=== PATIENT | male | born 1955 | race Caucasian/White ===

== ENCOUNTER 2016-09-15 21:36 | Emergency (ER) | payer OTHER ==
[~2016-09-15] VITALS: Ht 188 cm; Wt 111.8 kg
[2016-09-15 21:38] VITALS: BP 136/81; PULSE 81; RESP 20; O2SAT 95
--- NOTE | 2016-09-15 21:53 | ED.REPORT ---
HPI- Male Date of Service Sep 15, 2016 ED Provider: Dangeol Ruiz MD Pt is a 60 y.o. male with a hx of prostate cancer who presents to the ED c/o decreased urine output onset 1529. Pt states that he had a cystoscopy performed today and his san, that was in place for 6 days, was removed today. he states that after the procedure he was able to have about 1/3 cup of urine output. He now states that he feel as though his bladder is full and has had no additional output. Pt is currently followed by Dr. Bourgeois, Urology. Nursing Notes Stated Complaint: UNABLE TO URINATE Chief Complaint: Male Abdominal Pain Nursing Notes Reviewed: Yes Allergies: Coded Allergies: No Known Allergies (Unverified , 09/15/16) General Time Seen by MD: 21:53 Chief Complaint Unable to urinate Hx Obtained From: Patient Arrived By: Walk-in Onset Occurred: 5 - 8 hours ago Symptom Duration: Since onset Severity: Current: No pain currently Recent Healthcare: Recent doctor visit Past Medical History Past Medical History Reports: Cancer (Prostate) Ambulatory Status Independent Review of Systems Male: Reports Urination decreased Complete sys rev & neg: except as marked. Physical Exam Initial Vital Signs Vital Signs (First) Date Time Temp Pulse Resp B/P Pulse Ox O2 Delivery O2 Flow Rate FiO2 09/15/16 21:38 36.8 81 20 136/81 95 Room Air Initial VS: Reviewed Head / Eyes: Atraumatic, Normocephalic, PERRL Respiratory: Breath sounds normal, Clear to auscultation, No respiratory distress Cardiovascular: Regular rate & rhythm, Heart sounds normal, Intact distal pulses Extremities: Vascular intact, Neuro intact Skin: Warm, Dry, No cyanosis Neurologic: Alert, Oriented, Nonfocal Psychiatric: Mood/affect normal, Behavior normal, Normal thought content Male Genitourinary: Patient refused exam Abdomen: Atraumatic, Soft, Non-tender, No guarding, No rebound, No distention Interpretation & Diagnostics Lab Results Interpretation Test 09/15/16 22:32 Hold Urine Received (Received) Re-Eval/Medical Decision Med Decision/Clinical Course Patient with distention and sensation of bladder fullness after discontinuation of his San. Bladder scan are not immediately available and so San was placed with only 100 mL present. This is fairly clearly trigone irritation rather than bladder dilatation and urinary retention. Catheter removed. Follow-up with Dr. bourgeois Source of Hx: Old records Re-Evaluation/Progress : Time of Eval: 22:39 Patient Status: Condition improved Re-Evaluation/Progress Note: Pt rechecked. San in place with 100u output. Discussed plan for catheter removal and discharge, understands and agrees with plan. Counseled Regarding: Diagnosis, Lab results, Need for follow-up, When/why to return to ED Discharge & Departure Impression: Primary Impression: Prostatic hypertrophy Additional Impression: Urinary urgency Disposition: Home Discharge Condition All VS Reviewed: Yes Condition: Improved Additional Instructions: Follow-up with your urologist as planned. Return if any immediate issues. Referrals: Candelario Rice MD (PCP) Danielle Attestation Portions of this note were transcribed by Aris Mlechor. I, Dr. Ruiz personally performed the history, physical exam and medical decision-making; I reviewed and confirmed the accuracy of the information in the transcribed note. Signed by: Danielle Cruz, 09/15/16 and 7017. copies to: Terra Bourgeois MD; Candelario Rice MD, Christopher W MD Sep 15, 2016 21:53 ARIS MELCHOR Sep 15, 2016 22:02
[2016-09-15] MEDS ORDERED: Lidocaine 2% 6mL Topical Jelly TOPICAL ONE (22:05)
[2016-09-30] MEDS ORDERED: UBID200C31 PO (13:15)
[2016-09-30] MEDS ORDERED: BENEDRYL PO (13:15)
[2016-09-30] MEDS ORDERED: RED600CA2 PO (13:15)
[2016-09-30] MEDS ORDERED: L.AC1CAP6 PO (13:15)
[2016-09-30] MEDS ORDERED: ASPI-973 PO (13:15)
[2016-09-30] MEDS ORDERED: D-MA1POW MC (13:15)
[2016-09-30] MEDS ORDERED: NITR100C PO (13:15)
[2016-09-30] MEDS ORDERED: MULT-1018 PO (13:15)
[2016-09-30] MEDS ORDERED: CHOL100045 PO (13:15)
[2016-09-30] MEDS ORDERED: TADA5TAB2 PO (13:16)
== END 2016-09-15 22:57 | disposition home or self-care (01) ==
LOC: SED 21:36
DX: N40.1 Benign prostatic hyperplasia with lower urinary tract symptoms (principal); R39.15 Urgency of urination; C61 Malignant neoplasm of prostate; Z98.890 Other specified postprocedural states

== ENCOUNTER 2016-10-05 11:33 | Day surgery (SDC) | payer OTHER ==
[~2016-10-05] VITALS: Ht 188 cm; Wt 110.6 kg
[2016-10-05] VITALS (8 sets, daily range): BP systolic 114–138; BP diastolic 62–90; PULSE 64–75; RESP 12–17; O2SAT 93–99
[~2016-10-05 11:33] MED LIST: ASPI-973 PO; BENEDRYL PO; CHOL100045 PO; D-MA1POW MC; L.AC1CAP6 PO; MULT-1018 PO; Meropenem 1 Gm/100 mL NS Minibag Plus IV SCH; RED600CA2 PO; TADA5TAB2 PO; UBID200C31 PO
[2016-10-05] MEDS ORDERED: Ondansetron 2 mg/mL 2 mL Inj ONE (11:34)
[2016-10-05] MEDS ORDERED: Lidocaine PF 1% 30 mL Inj ONE (11:34)
[2016-10-05] MEDS ORDERED: fentaNYL-PF 50 mCg/mL 2 mL Inj ONE (11:34)
[2016-10-05] MEDS ORDERED: Propofol 10,000 mCg/mL 20 mL Inj ONE (11:34)
[2016-10-05] MEDS ORDERED: EPHEDrine/NS 5 mg/mL 5 mL Syringe ONE (11:34)
[2016-10-05] MEDS: Lactated Ringer's 1,000 ML IV SCH ×2 (11:40→15:05)
[2016-10-05] MEDS ORDERED: Lactated Ringer's 500 ML IV PRN (14:46)
[2016-10-05] MEDS ORDERED: Lactated Ringer's 1,000 ML IV SCH (14:46)
--- NOTE | 2016-10-05 14:46 | PCM.HPANE ---
Patient Data Date of Service: Oct 05, 2016 Surgeon Admitting Provider: Attending Provider:Terra Lopez MD Primary Care Physician:Candelario Rice MD Other Provider:Urmila Stallworth Anesthesia Reason for Visit Recurrent Urinary Tract Infection Ht/WT & BMI Height (Feet): 6 Height (Inches): 2 Weight (Kilograms): 110.6 Body Mass Index 31.00 Allergies Coded Allergies: No Known Allergies (Unverified , 09/30/16) Past Anesthesia History Anesthesia History: Denies:: Anesthesia Reactions, Malignant Hyperthermia Diabetes History Hx Diabetes?: No MRSA MRSA: No Medications Home Meds Incl Beta Chacorta: No Reported Medications Tadalafil (Cialis)5 Mg Tablet5 Mg PO PRN PRN ED Ref 0 As directed by physician. 09/30/16 Cholecalciferol (Vitamin D3) (Vitamin D)1,000 Unit Capsule1,000 Unit PO DAILY # 1 BOTTLE Ref 0 09/30/16 Red Yeast Rice 600 Mg [id number] Mg PO DAILY 09/30/16 L.acidoph & Paracasei,B.lactis (Probiotic)10 Billion Cell Capsule2 Each PO DAILY 09/30/16 Multivitamin (Multi Vitamin Daily)1 Each Tablet1 Each PO DAILY 30 Days Ref 0 09/30/16 D-Mannose 1 Gm Powder1 Gm MC DAILY 09/30/16 Ubidecarenone (Coenzyme Q-10)200 Mg [id number] Mg PO DAILY 09/30/16 [Benedryl] No Conflict Check12.5 Mg PO Q4-6H PRN PRN 09/30/16 Aspirin 81 Mg [id number] Mg PO DAILY Ref 0 09/30/16 Discontinued Reported Medications Nitrofurantoin Macrocrystal 100 Mg [id number] Mg PO BID Ref 0 X 5 DAYS 09/30/16 History History of ENT Problems?: No HEENT History: Denies:: Abnormal Airway Denture Type: None Teeth Condition: Within Normal Limits Hx of Heart Problems?: Yes Cardiovascular History: Positive for:: Thrombophlebitis (HX DVT FOLLOWING HEEL INJURY 10YRS AGO) Denies:: Congestive Heart Failure Heart Murmur (ECHO 04/2016 EF 60-65%) Hypertension (hyperlipidemia) Hx of Respiratory Problem?: Yes Respiratory History: Denies:: Tuberculosis Use of C-PAP Machine (SNORES) Hx Neurologic Problems?: No Hx of GI Problems?: Yes Hx of Problems?: Yes Genitourinary History: Positive for:: Urinary Tract Infection (RECURRENT W/ LUTS) Other Pertinent History: FOREIGN BODY ( TISSUE/DEBRIS) IN BLADDER= CURRENT PROBLEM S/P CYSTO,INSERTION & REMOVAL OF SUPRAPUBIC TUBE,INSERTION OF PROSTHETIC URETHRA Male Hx: Positive for:: Prostate Problems (HX PROSTATE CA S/P HIFU (HIGH INTENSITY FOCUSED U/S)) Denies:: Scrotal Mass Testicular Surgery Skin History: Positive for:: History Skin Disorders? (S/P EXC BASAL CELL SKIN CA) Denies:: Pressure Ulcers Hx Musculoskeletal Problems?: Yes Musculoskeletal History: Positive for:: Musculoskeletal Trauma (HEEL INJURY 10YRS AGO FOLLOWED BY DVT) Hx of Psycho/Social Problems?: No Hx Surgeries?: Yes (HIFU,SPT INSERT/REMOVAL,CYSTO,EXC BCC SKIN CA,INSERTION PROSTHETIC URETHRA) Hx Any Other Health Problems?: Yes Other History: Positive for:: Cancer (PROSTATE, BASAL CELL SKIN CA) Denies:: Endocrine Disease Hospitalization Thyroid Disease Hx Diabetes: No Hx Alcohol Use: Yes (OCCAS)Hx Substance Use: No Smoking Status: Unknown if Ever Smoker Have You Smoked inLast 12 mo: No Stop/Bang Treated for Sleep Apnea?: No Do You Have a CPAP Machine?: No S-Snoring: Do You Snore Loudly: Yes T-Tired: feel tired, fatigued: No O-Obsered: Observed not breath: No P-Blood Pressure: treated: No B- Body Mass Index > 35 kg/m2: No A- Age over 50: Yes N- Neck Large Circumference: No G- Gender Male: Yes AZAM Total Score: 3 AZAM Risk Assessment: High Risk, =/>3 Yes AZAM Category 4 OutPt Procedure: Yes Risk Assessment Category Category 1A: Patient has history of documented sleep apnea, and HAS NOT received any narcotic, sedative or anesthesia administration during this stay. Category 1B: Patient has history of documented sleep apnea, and HAS received any narcotic , sedative or anesthesia administration during this stay Category 2: Patient has SUSPECTED Obstructive Sleep Apnea, and HAS received any narcotic , sedative or anesthesia administration during this stay. Category 3: Patient has SUSPECTED Obstructive Sleep Apnea and HAS NOT received narcotic, sedative or anesthesia administration during this stay. Category 4: Outpatient in Procedural Areas with known sleep apnea or who screen positive for High Risk via the STOP/BANG questionnaire. Exam Exam Vital Signs Vital Signs Date Time Temp Pulse Resp B/P Pulse Ox O2 Delivery O2 Flow Rate FiO2 10/05/16 11:57 36.4 71 17 129/86 93 Room Air General Appearance: Alert, Oriented X3, Cooperative HEENT/AIRWAY: MP 2, Neck Movement, Mouth Opening (Wide) Lungs: Clear to Auscultation, Normal Air Movement Heart: Regular Rate/Rhythm, Normal S1, Normal S2 Meds/Labs/Diagnostics Admission Meds Current Medications Lactated Ringer's (Lr) 1,000 ml @ 120 mls/hr Q8H20M IV Last administered on t 11:40; Start 10/05/16 at 05:00; Stop 10/05/16 at 13:19 Plan Impression Patient chart reviewed, patient interviewed and anesthestic plan with risks, benefits, and alternatives discussed, and informed consent obtained. NPO per Anesth. Guidelines: Yes ASA Physical Status: ASA2 Mod Systemic Disease Anesthetic Plan: GA Bene/Risks/Altern/Consents: Yes HP Complete Prior to Induction: Yes Tanmay Izaguirre MD Oct 05, 2016 12:49
[2016-10-05] MEDS ORDERED: HYDROmorphone 1 mg/mL Inj IVPUSH PRN (14:50)
[2016-10-05] MEDS ORDERED: Ondansetron 2 mg/mL 2 mL Inj IVPUSH PRN (14:50)
[2016-10-05] MEDS ORDERED: EPHEDrine Sulfate 50 mg/mL Inj IVPUSH PRN (14:50)
[2016-10-05] MEDS ORDERED: hydrALAZINE 20 mg/mL Inj IVPUSH PRN (14:50)
[2016-10-05] MEDS ORDERED: Labetalol 5 mg/mL 4 mL Inj IV PRN (14:50)
[2016-10-05] MEDS ORDERED: Dexamethasone 4 mg/mL Inj IVPUSH PRN (14:50)
[2016-10-05] MEDS ORDERED: fentaNYL-PF 50 mCg/mL 2 mL Inj IVPUSH PRN (14:50)
[2016-10-05] MEDS ORDERED: Phenylephrine 10,000 mCg/mL Inj IVPUSH PRN (14:50)
[2016-10-05] MEDS ORDERED: MetoCLOpramide 5 mg/mL 2 mL Inj IVPUSH PRN (14:50)
[2016-10-05] MEDS ORDERED: Atropine 0.4 mg/mL Inj IVPUSH PRN (14:50)
[2016-10-05] MEDS ORDERED: HYDROcodone-APAP 5-325 mg Tablet PO PRN (15:55)
--- NOTE | 2016-10-05 16:29 | PCM.ANEP1 ---
Post Anesthesia PACU Phase 1 Assessment Vital Signs Vital Signs Date Time Temp Pulse Resp B/P Pulse Ox O2 Delivery O2 Flow Rate FiO2 10/05/16 16:20 66 17 123/62 95 Room Air 10/05/16 16:00 73 13 114/77 96 Room Air 10/05/16 15:55 73 16 119/70 96 Room Air 10/05/16 15:50 75 15 131/68 99 Simple Mask 10 10/05/16 15:45 36.7 71 12 126/71 99 Simple Mask 10 10/05/16 11:57 36.4 71 17 129/86 93 Room Air Anesthetic Administered: GA Level of Alertness: Sleepy, easy to arouse ZACARIAS's with Equal Strength: Yes Pain: No Nausea or Vomiting: No CV Function & Hydration Stable: Yes Airway Device: Oxygen Delivery: Simple Mask Lungs: Normal Air Movement PACU Phase 2 Assessment Complications: No Follow up Care: N/A Patient Instructions Provided: N/A Tanmay Izaguirre MD Oct 05, 2016 16:29
--- NOTE | 2016-10-05 16:45 | OP ---
[address] [address] OPERATIVE REPORT PATIENT: BRANDEE MEREDITH : 1955 MR#: [id number] ADMIT: 10/05/2016 JOB ID: [id number] DATE OF SURGERY: 10/05/2016 SURGEON: Terra Lopez MD PREFINISH OPERATOR: None. PREOPERATIVE DIAGNOSIS(ES): History of prostate cancer. POSTOPERATIVE DIAGNOSIS(ES): History of prostate cancer. PROCEDURE PERFORMED: Transurethral resection of foreign body in the bladder. FINDINGS: Two necrotic balls of tissue approximately 2.5 cm and 1.5 cm. ANESTHESIA: General. ESTIMATED BLOOD LOSS: None. DRAINS: None. SPECIMENS: Necrotic tissue. COMPLICATIONS: None. CONDITION: Stable. INDICATIONS FOR PROCEDURE: The patient is a 60-year-old gentleman, status post HIFU for history of prostate cancer. His post HIFU course (it should be noted that he had his HIFU performed by an outside hospital urologist) has been complicated with urinary retention, multidrug resistant urinary tract infections, and now what appears to be retained necrotic tissue likely that from the prostate after HIFU. He now presents for transurethral resection of this tissue. DESCRIPTION OF PROCEDURE: After informed consent was obtained, the patient was taken to the operating room. A time-out was performed identifying correct patient, surgical site, procedure. General anesthesia was smoothly induced. He was given intravenous antibiotics just prior to the start of the procedure. He was placed in the lithotomy position and all pressure points were identified and appropriately padded. His genitals were then prepped and draped in usual sterile fashion. A 26-Thai resectoscope was applied to the patient's urethra and advanced. The prostatic urethra was fixed, though the resectoscope could be navigated beyond it with gentle manipulation. Entry into the bladder was gained. The bladder was emptied. The bladder was systematically inspected. Both ureteral orifices were seen in orthotopic position. A 24-Thai resecting loop was applied to these necrotic balls of tissue. These were resected in piecemeal fashion. They were drained through the resectoscope as well as an Ellik evacuator. At the end of the procedure, the bladder was totally clean of any necrotic debris. Both ureteral orifices were left as undisturbed. The bladder was drained. The instruments were removed from the patient's bladder. The patient was then reversed from general anesthesia and taken to the PACU in good and stable condition. AMADOR
--- NOTE | 2016-10-07 11:19 | PATH ---
SURGICAL PATHOLOGY Attending Physician:Terra Lopez, CASE STATUS: Signed Out PATIENT NAME: BRANDEE MEREDITH PID: [id number] : 1955 DATE COLLECTED:10/05/2016 00:00 SPECIMEN: Bladder, Biopsy CLINICAL HISTORY: RECURRENT URINARY TRACT INFECTIONS 1). TISSUE FROM BLADDER FINAL DIAGNOSIS: 1.TISSUE FROM URINARY BLADDER: MULTIPLE FRAGMENTS OF TOTALLY NECROTIC TISSUE WITH NO VIABLE TISSUE IDENTIFIED. NUMEROUS BACTERIA PRESENT. ICD10 N39.0 GROSS DESCRIPTION: The specimen is received in one formalin filled container labeled with the patient's name, sublabeled " tissue from bladder" and consists of multiple guzman-brown friable portions of tissue which aggregate to 2.0 x 2.0 x 0.6 CM. The specimen is filtered and entirely submitted in 3 cassettes. 10/06/2016 [facility] MICRO DESCRIPTION: See diagnosis. ICD-9 CODES: CPT CODES: 1: 16532 Electronically Signed Out Ja Pike MD [facility] Pathology [facility] [address], [place] [address] Technical component performed at [facility], [facility] [address], [place], [address]
== END 2016-10-05 23:59 | disposition home or self-care (01) ==
LOC: SAS 11:33
PROVIDERS: ATTEND Urology
DX: N39.0 Urinary tract infection, site not specified (principal); R33.9 Retention of urine, unspecified; Z85.46 Personal history of malignant neoplasm of prostate; Z86.718 Personal history of other venous thrombosis and embolism; Z79.82 Long term (current) use of aspirin
CPT/HCPCS: 52315; J2185; J2250; J2405; J3010; J7120